=== PATIENT | male | born 1990 | race Caucasian/White ===

== ENCOUNTER 2020-01-15 16:26 | Emergency (ER) | payer OTHER, SELFPAY ==
[2020-01-15 16:56] VITALS: BP 133/62; PULSE 85; RESP 14; TEMP 36.4; O2SAT 97
[2020-01-15] MEDS: methylPREDNISolone Sod Succ/PF 125 MG/2 ML VIAL IVPUSH (17:14)
[2020-01-15] MEDS: Famotidine/PF 20 MG/2 ML VIAL IVPUSH (17:14)
[2020-01-15] MEDS: diphenhydrAMINE HCL 50 MG/ML VIAL 25 MG IVPUSH (17:15)
[2020-01-15 17:31] VITALS: BP 133/62; PULSE 85; RESP 14; TEMP 36.4; O2SAT 97; BMI 37.3
--- NOTE | 2020-01-15 17:57 | ED_ITS ---
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 He otherwise denies any tongue swelling, difficulty breathing, chest pain or shortness of breath. Denies any prior reactions or problems. Again he does have history of IVDA use and does occasionally use IV heroin which he used yesterday. He otherwise denies any chest pain or shortness of breath. No headache. No nausea vomiting or diarrhea. MD complaint: allergic reaction Onset (ago): minute(s) Exposure: other ( Bee ) Symptoms: facial swelling and lip swelling Severity: mild Treatment prior to arrival: none Previous Allergic Reaction History: none Related Data Previous Rx's Medication Instructions Recorded prednisone 40 mg PO DAILY #10 tab 01/15/20 Allergies Allergy/AdvReac Type Severity Reaction Status Date / Time No Known Allergies Allergy Unverified 12/11/19 19:17 [No Known Allergies*] Review of Systems Review of Systems: Constitutional: No Weight loss, No Fever, No Chills, No Night Sweats, No Fatigue, No Malaise ENT/Mouth: No Hearing loss, No Ear Pain, No Nasal Congestion, No Sinus Pain, No Hoarseness, No sore throat, No Rhinorrhea, No Swallowing Difficulty, additionally as noted per HPI Eyes: No Eye Pain, No Swelling, No Redness, No Foreign Body, No Discharge, No Vision Changes Cardiovascular: No Chest Pain, No SOB, No Dyspnea on Exertion, No Orthopnea, No Edema, No Palpitations Respiratory: No Cough, No Sputum, No Wheezing, No Smoke Exposure, No Dyspnea Gastrointestinal: No Nausea, No Vomiting, No Diarrhea, No Constipation, No abdominal Pain, No Hematochezia, No Melena Genitourinary: no irregular bleeding, No Dysuria, No Urinary Frequency, No Hematuria, No Urinary Incontinence, No Urgency, No Flank Pain, No Urinary Flow Changes, No Hesitancy Musculoskeletal: No joint pain, No Myalgias, No Joint Swelling Skin: No Skin Lesions, No rash Neuro: No Weakness, No Numbness, No Paresthesias, No Loss of Consciousness, No Dizziness, No Headache Psych: No Anxiety/Panic, No Depression, No SI/HI/AH/VH, No Social Issues Heme/Lymph: No Bruising, No Bleeding,No Lymphadenopathy Endocrine: No Polyuria, No Polydipsia, No Temperature Intolerance Yes all other systems are reviewed and are negative [facility] Past Medical History Attestation statement: The following information was validated with the patient. Medical History (Updated 01/16/20 @ 00:00 by Background Daemon) No known health problems No known health problems Social History Social History Smoking Status: Never smoker Use of substances other than those prescribed or required for medical reasons: No Advance Directives: No Advance Directives Information Provided: No Physical Exam Vital Signs: Vital Signs: Vital Signs Temp Pulse Resp BP Pulse Ox 01/15/20 17:31 97.6 F 85 14 133/62 97 01/15/20 16:56 97.6 F 85 14 133/62 97 Body Mass Index 37.3 Const: General: cooperative and healthy appearing; No acute distress or intoxicated appearing Nutritional Appearance: average body habitus Orientation/consciousness: patient oriented x3 HENMT: Head: Yes normal to inspection Head images: 1. mild swelling noticeable to the lower lip on the right aspect extending to the right cheek. Otherwise he now needs midline and symmetrical. No orbital/ nasal/intraoral edema/involvement. Speech is clear and denies any difficulty / scratchy throat Ears: hearing grossly normal bilaterally Eyes: General: appearance normal, both eyes and all related structures Visual Almanza: normal visual almanza by confrontation Neck: Neck: Yes normal visual inspection Thyroid: Thyroid normal Chest: Chest palpation & inspection: normal inspection of the chest Resp: Effort & Inspection: normal respiratory effort Cardio: Jugular venous distension: no JVD GI: Inspection: Yes normal to inspection Percussion: Yes normal to percu ssion Auscultation: normal bowel sounds : General: Yes no CVA tenderness Back/Spine/Pelvis: Back: no CVA tenderness Skin: General skin exam: no rashes or lesions noted Neuro: General: patient oriented x3 Extrem: General: Yes normal to inspection Course Course Course Narrative: interview 29-year-old male presenting with slight angioedema to the lower lip right side and slight right cheek after bee sting. No airway compromise or anaphylaxis sinus symptoms. He was subsequent given IV fluids, Benadryl, Pepcid and Solu-Medrol and monitored in the ED for about 2 hours. His angioedema fully resolved. He maintained his airway and no acute distress. Speaking in and clear sentences. Will be discharged home with short course prednisone and clear return follow-up precaution. He will follow up with primary care doctor for follow-up in 2-3 days and return to emergency room if any concern in the meantime. He is stable for discharge. MDM - Allergic Reaction MDM Narrative Medical decision making narrative: managing airway. In no acute distress place placed on equipment monitor phototypesetting/ pulse oximeter. Hemodynamically stable. Given that his symptoms slowly getting worse he was given IV fluids, IV Benadryl Solu- Medrol and Pepcid. Will be observed for period time to make sure there is no deterioration condition. Differential Diagnosis Differential diagnosis: Likely allergic reaction and angioedema; Unlikely anaphylaxis, contact dermatitis, adverse reaction to drug, viral enanthem and urticaria Discharge Plan Discharge Clinical Impression: Allergic reaction, Angioedema Patient Disposition: Home, Self-Care Instructions: Insect Bite or Sting (ED), Angioedema (ED) Additional Instructions: return if you have any return of swelling or symptoms of difficulty breathing, trouble with swallowing, chest pain, shortness of breath or cough otherwise take medication prescribed and follow up as instructed Thank you Prescriptions: New prednisone 20 mg tablet 40 mg PO DAILY Qty: 10 RF: 0 Referrals: Physician,Unknown [Primary Care Provider] - 2 days ( your primary care) Interventions: ED Discharge Assessment Last Done: 01/15/20 18:38 Discharge Date/Time: 01/15/20 18:39
== END 2020-01-15 18:39 | disposition home or self-care (01) ==
PROVIDERS: Emergency Provider Emergency Medicine
DX: L23.9 Allergic contact dermatitis, unspecified cause (principal); F11.90 Opioid use, unspecified, uncomplicated
CPT/HCPCS: 96361; 96374; 96375; 99284; J1200; J2930